=== PATIENT | male | born 1950 | race Caucasian/White ===

== ENCOUNTER → 2016-11-25 | Outpatient (CLI) | payer OTHER, BC ==
[~2016-11-25] MED LIST: AMLO-114 PO; ASPI-232 PO; GABA300C19 PO; GLIP-199 PO; HYDR25TA5 PO; INSU1.2I SQ; INSUINJ5 SQ; LSN40 PO; METF-384 PO; MULT-884 PO; NITR0.4S UT; ROSU40TA PO; TPRSR/100 PO
[2016-11-25 13:34] LABS: ESTIMATED AVERAGE GLUCOSE 189 mg/dl; HA1C FLAG Normal (Normal)
[2016-11-25 13:46] LABS: ALT/SGPT 53 U/L (12-78); BLOOD UREA NITROGEN 21 mg/dl (7-18); BUN/CREATININE RATIO 19.3 (10-20); CALCIUM 9.6 mg/dl (8.5-10.1); CARBON DIOXIDE 27 mmol/L (21-32); CHLORIDE 106 mmol/L (98-107); CHOLESTEROL 142 mg/dl (0-200); GLUCOSE 96 mg/dl (70-99); POTASSIUM 4.1 mmol/L (3.5-5.1); SODIUM 142 mmol/L (136-145); TRIGLYCERIDES 189 mg/dl (0-150); VERY LOW DENSITY LIPOPROT CALC 38 mg/dl
[2016-11-25 13:54] LABS: RATIO 56.8 mcg/mg (0-30.0)
[2016-11-25 13:56] LABS: CHOLESTEROL/HDL RATIO 4.2; HDL CHOLESTEROL 34 mg/dl
== END | disposition home or self-care (01) ==
LOC: C.LABMFLN 08:07
PROVIDERS: ATTEND Family Medicine
DX: Z00.00 Encounter for general adult medical examination without abnormal findings (principal); I25.10 Atherosclerotic heart disease of native coronary artery without angina pectoris; I10 Essential (primary) hypertension; E78.00 Pure hypercholesterolemia, unspecified; E03.9 Hypothyroidism, unspecified; E11.65 Type 2 diabetes mellitus with hyperglycemia

== ENCOUNTER → 2016-11-29 | Outpatient (CLI) | payer OTHER, BC ==
[2016-11-29 18:13] LABS: BASO % 0.1 %; BASO ABS # 0.01 K/uL (0-0.2); COMPLETE YES; EOS % 0.7 %; HEMATOCRIT 38.8 % (42-52); IG% 0.1 %; LYMPH % 19.4 %; LYMPH ABS # 1.39 K/uL (1.2-3.4); MEAN CELL VOLUME 97.2 fL (80-100); MEAN CORPUSCULAR HEMOGLOBIN 32.1 pg (25-34); MONO % 6.6 %; NEUT % 73.1 %; PLATELET COUNT 196 K/uL (130-400); RED BLOOD COUNT 3.99 M/uL (4.7-6.1); WHITE BLOOD COUNT 7.16 K/uL (4.8-10.8)
== END | disposition home or self-care (01) ==
LOC: C.LABMFLN 13:44
PROVIDERS: ATTEND Family Medicine
DX: Z89.422 Acquired absence of other left toe(s) (principal); R06.09 Other forms of dyspnea; R07.2 Precordial pain

== ENCOUNTER → 2017-04-02 | Outpatient (CLI) | payer OTHER, BC ==
[~2017-04-02] MED LIST changes: +GABA-1218 PO; -GABA300C19 PO
[2017-04-02 12:41] LABS: BASO % 0.4 %; BASO ABS # 0.03 K/uL (0-0.2); COMPLETE YES; EOS % 1.2 %; HEMATOCRIT 38.1 % (42-52); IG% 0.1 %; LYMPH % 23.7 %; LYMPH ABS # 1.95 K/uL (1.2-3.4); MEAN CELL VOLUME 97.9 fL (80-100); MEAN CORPUSCULAR HEMOGLOBIN 33.4 pg (25-34); MEAN CORPUSCULAR HGB CONC 34.1 g/dl (32-36); MEAN PLATELET VOLUME 10.9 fL (7.4-10.4); MONO % 9.4 %; NEUT % 65.2 %; PLATELET COUNT 198 K/uL (130-400); RED BLOOD COUNT 3.89 M/uL (4.7-6.1); WHITE BLOOD COUNT 8.22 K/uL (4.8-10.8)
[2017-04-02 13:12] LABS: URINE APPEARANCE CLEAR (CLEAR); URINE COLOR DK YELLOW; URINE EPITHELIAL CELL AUTO >30 /lpf (0-5); URINE NITRITE NEG (NEG); URINE PH 5.5 (4.5-7.5); URINE SPECIFIC GRAVITY 1.027 (1.000-1.030); UROBILINOGEN NEG (NEG); ZZUR CULT IF INDIC CLEAN CATCH NO
[2017-04-02 13:28] LABS: ALB/GLOB RATIO 0.9 (0.9-2); ALKALINE PHOSPHATASE 121 U/L (45-117); ALT/SGPT 52 U/L (12-78); AST/SGOT 52 U/L (15-37); BLOOD UREA NITROGEN 24 mg/dl (7-18); BUN/CREATININE RATIO 21.1 (10-20); CALCIUM 9.1 mg/dl (8.5-10.1); CARBON DIOXIDE 25 mmol/L (21-32); CHLORIDE 107 mmol/L (98-107); CREATININE 1.14 mg/dl (0.60-1.40); GLUCOSE 147 mg/dl (70-99); SODIUM 139 mmol/L (136-145)
[2017-04-02 13:41] LABS: ESTIMATED AVERAGE GLUCOSE 220 mg/dl; HA1C FLAG Normal (Normal)
[2017-04-02 13:54] LABS: MANUAL MICROSCOPIC REQUIRED? NO; REVIEW REQ? YES; URINE BILIRUBIN NEG (NEG)
== END | disposition home or self-care (01) ==
LOC: C.LABMFLN 08:29
PROVIDERS: ATTEND Family Medicine
DX: R10.31 Right lower quadrant pain (principal)

== ENCOUNTER → 2017-05-07 | Day surgery (SDC) | payer OTHER, BC ==
[2017-04-23 13:25] VITALS: Ht 182.9 cm; Wt 147.7 kg
[~2017-05-07] VITALS: Ht 182.9 cm; Wt 147.7 kg
[~2017-05-07] MED LIST changes: +500ML BSS 0.3ML EPI 1:1000PF IRRIG ONE; +ACETAMINOPHEN 325 MG TAB PO PRN; +AMVISC PLUS 0.8ML SYRINGE INT OCU ONE; +ATROPINE SULFATE 0.1 MG/ML 5ML SYR IV PRN; +BSS FLUSH ONE; +ENDOCOAT 0.85ML SYRINGE INT OCU ONE; +EpHEDrine SULFATE INJ 50 MG/ML AMP IV PRN; +EpINEphrine INJ 1MG/ML AMP 1 MG/ML AMP ONE; +FLUT0.15 NAE; +FLUT45AE IN; +FURO-85 PO; -GABA-1218 PO; -GLIP-199 PO; -HYDR25TA5 PO; +INSU1.2I SC; -INSU1.2I SQ; +INSUINJ5 SC; -INSUINJ5 SQ; +LACTATED RINGER'S 1000ML 500 ML IV SCH; +LIDOCAINE 4% OP SOLN DROP CHARGE ONE; +LIDOCAINE 4% OP SOLN DROP CHARGE OPR SCH; +LIDOCAINE HCL 1% MPF 2 ML VIAL ONE; +LISI-725 PO; +LORA-554 PO; -LSN40 PO; +MIDAZOLAM HCL 1 MG/ML 2ML VIAL ONE; +MIX: 4ML BSS 1ML EPI 1:1000 PF TOP ONE; +MOXIFLOXACIN OPH SOLN PER DROP CHARGE ONE; +PARO1TAB27 PO; +POVIDONE-IODINE OP SOLN 30 ML BTL ONE; +PROPARACAINE 0.5% OP SOLN PER DROP CHARGE OPR SCH; +TICA1TAB PO; +TOBRAMYCIN/DEXAMETHASONE OPH OINT PER APPLN CHARGE ONE
--- NOTE | 2017-05-07 06:37 | History & Physical Bridge - [place] ---
H&P Re-Evaluation Bridge Note: I have examined the patient, reviewed the History & Physical and in the interval since the performance of the History & Physical I have noted the following changes of clinical significance: No changes noted
[2017-05-07] MEDS: PHENYLEPHRINE HCL 2.5% OP SOLN PER DROP CHARGE OPR SCH ×3 (06:40→06:51)
[2017-05-07] MEDS: TROPICAMIDE 1% OP SOLN PER DROP CHARGE OPR SCH ×3 (06:41→06:52)
[2017-05-07] MEDS: CYCLOPENTOLATE HCL 1% OP SOLN PER DROP CHARGE OPR SCH ×3 (06:42→06:53)
[2017-05-07] MEDS: MOXIFLOXACIN OPH SOLN PER DROP CHARGE OPR SCH ×3 (06:46→06:54)
--- NOTE | 2017-05-07 07:29 | [facility] Post Operative Brief Note ---
Immediate Operative Summary Operative Date May 07, 2017. Pre-Operative Diagnosis Cataract Right eye Post-Operative Diagnosis Same Procedure(s) Performed Right Cataract Phacoemulsification With Intraocular Lens Implant Surgeon Coordinator Of Genetic Services Surgeon(s) None Estimated Blood Loss Zero Findings right cataract Specimens None Complication(s) None Disposition
--- NOTE | 2017-05-07 07:29 | [facility] Operative Report ---
Operative Report Date of Service May 07, 2017. Operative Report DATE OF OPERATION: 05/07/17 PREOPERATIVE DIAGNOSIS: Senile nuclear cataract, right eye POSTOPERATIVE DIAGNOSIS: Senile nuclear cataract, right eye PROCEDURE PERFORMED: Phacoemulsification with intraocular lens implantation, right eye SURGEON: Dr. Chance Fernandez ANESTHESIA: Topical with 1% intracameral lidocaine and monitored anesthesia care COMPLICATIONS: None DESCRIPTION OF PROCEDURE: After positively identifying the patient both verbally and by wristband in the preoperative area, the right eye was marked as the operative eye. The patient was then brought back to the operating room by the anesthesia and nursing staff where they were given a drop of Lidocaine and betadine into the operative eye. They were then sterilely prepped and draped in the standard fashion typical for ophthalmic surgery. Steri-strips were placed along the upper eyelids to keep the lashes back, and a lid speculum was placed into the operative eye. At this point, a documented time out was performed with members of the ophthalmology, nursing, and anesthesia staffs all agreeing upon the correct patient, correct location for surgery, correct procedure, and correct type and power of intraocular lens to be implanted. The microscope was then swung into position. First, a paracentesis wound was made using a sideport blade. Then, in sequence, 1% preservative-free lidocaine followed by Endocoat viscoelastic was injected into the anterior chamber. Next , the main incision was made with a keratome blade in triplanar fashion. A sharp cystotome was introduced into the eye and used to create a tear in the anterior capsule, which was directed into a continuous curvilinear capsulorrhexis using Utrata forceps. Hydrodissection was then performed with BSS on a flat-tip cannula. Next, the phacoemulsification handpiece was introduced into the eye and used to remove the nucleus in a [id number]-[id number]-[id number] fashion. This was done without complication and then the irrigation-aspiration handpiece was introduced into the eye and used to remove all remaining cortical and epinuclear material. Amvisc was then injected into the anterior chamber as well as into the capsular bag and using the lens injector system, an MX60 19.5 D lens, serial number [id number], and expiration date 12/2019 was injected into the capsular bag and rotated into the correct position. Next, the irrigation- aspiration handpiece was used to remove all remaining Amvisc. BSS was used to hydrate the main wound, and then BSS was injected into the paracentesis site to reach physiologic pressure and then the main wound was checked and found to be watertight. The patient was given drops of Vigamox and Tobradex ointment into the operative eye, and then the surrounding area was cleaned and dried. A clear plastic shield was placed over the eye and the patient was then sat up and taken from the operating room by the anesthesia staff having tolerated the procedure well and suffering no complications. DISPOSITION: The patient was returned to the recovery room in stable condition. I attest to the content of the Intraoperative Record and any orders documented therein. Any exceptions are noted below.
--- NOTE | 2017-05-07 07:30 | Discharge Instructions-SurgCtr ---
Discharge Instructions Date of Service May 07, 2017. Visit Reason for Visit: Right Cataract Discharge Discharge Diagnosis / Problem: right cataract Discharge Goals Goal(s): Decrease discomfort, Improve function Medications Stopped Medications Name(s): Metformin, last taken Friday 05/04 Activity Recommendations Activity Limitations: as noted below Anesthesia . Post Anesthesia Instructions: If you have had General Anesthesia or IV Sedation: * Do not drive today. * Resume driving when surgeon permits. * Do not make important decisions or sign legal documents today. * Call surgeon for: 1. Temperature elevations greater than 101 degrees F. 2. Uncontrollable pain. 3. Excessive bleeding. 4. Persistent nausea and vomiting. 5. Medication intolerance (nausea, vomiting or rash). * For nausea and vomiting use only clear liquids such as: tea, soda, bouillon until nausea subsides, then gradually increase diet as tolerated. * If you have any concerns or questions, call your surgeon's office. If physician is unavailable and it is an emergency, call 911 or go to the nearest emergency room. . Instructions / Follow-Up Instructions / Follow-Up ACTIVITY RECOMMENDATIONS: * Light activities. * You may walk outside, read, watch television. * You may notice redness on the white part of the eye and some blurry vision - this is normal. MEDICATIONS: Resume previous medications unless instructed otherwise by your surgeon. Start all eye drops at 9:30 am today: * Eye drops (today): Prednisone - one drop in operative eye every 2 hours while awake Ofloxacin - one drop in operative eye every 2 hours while awake Prolensa - one drop in operative eye daily SPECIAL CARE INSTRUCTIONS: * Tape plastic shield over eye to sleep at night. Call your doctor at with any concerns or problems. FOLLOW UP VISIT: Follow-up with Dr Fernandez at [facility] office as scheduled. Diet Recommendations Home Diet: no limitations Procedures Procedures Performed: Right Cataract Phacoemulsification With Intraocular Lens Implant Pending Studies Studies pending at discharge: no Medical Emergencies . Who to Call and When: Medical Emergencies: If at any time you feel your situation is an emergency, please call 911 immediately. . Non-Emergent Contact Non-Emergency issues call your: Surgeon . . "Provider Documentation" section prepared by Chance Fernandez. .
--- NOTE | 2017-05-07 07:46 | Anesthesia Progress Nt - [facility] ---
Anesthesia Post Op Note Date & Time May 07, 2017 at 07:46 Vital Signs Pain Intensity: 0 Vital Signs Past 12 Hours Date Time Temp Pulse Resp B/P (MAP) Pulse Ox O2 Delivery O2 Flow Rate FiO2 05/07/17 07:28 36.8 16 137/72 (93) 95 Room Air 05/07/17 06:30 36.5 58 18 134/73 (93) 95 Notes Mental Status: alert / awake / arousable, participated in evaluation Pt Amnestic to Procedure: Yes Nausea / Vomiting: adequately controlled Pain: adequately controlled Airway Patency, RR, SpO2: stable & adequate BP & HR: stable & adequate Hydration State: stable & adequate Anesthetic Complications: no major complications apparent
[2017-05-07 08:03] VITALS: BP 136/66; PULSE 64; O2SAT 98
== END | disposition home or self-care (01) ==
LOC: X.SURG 06:15
PROVIDERS: ATTEND Ophthalmology
DX: E11.36 Type 2 diabetes mellitus with diabetic cataract (principal); H25.11 Age-related nuclear cataract, right eye; I25.10 Atherosclerotic heart disease of native coronary artery without angina pectoris; I10 Essential (primary) hypertension; Z88.5 Allergy status to narcotic agent; Z85.828 Personal history of other malignant neoplasm of skin; Z87.891 Personal history of nicotine dependence; Z79.899 Other long term (current) drug therapy; Z79.82 Long term (current) use of aspirin

== ENCOUNTER → 2017-05-21 | Day surgery (SDC) | payer OTHER, BC ==
[2017-05-16 12:04] VITALS: Ht 182.9 cm; Wt 147.7 kg
[~2017-05-21] VITALS: Ht 182.9 cm; Wt 147.7 kg
[~2017-05-21] MED LIST changes: +ALBUTEROL HFA 8 GM INHALER INH ONE; -AMLO-114 PO; +AMLO10TA3 PO; +LIDOCAINE 4% OP SOLN DROP CHARGE OPL SCH; -LIDOCAINE 4% OP SOLN DROP CHARGE OPR SCH; +PROPARACAINE 0.5% OP SOLN PER DROP CHARGE OPL SCH; -PROPARACAINE 0.5% OP SOLN PER DROP CHARGE OPR SCH
[2017-05-21] MEDS: PHENYLEPHRINE HCL 2.5% OP SOLN PER DROP CHARGE OPL SCH ×3 (06:54→07:04)
[2017-05-21] MEDS: TROPICAMIDE 1% OP SOLN PER DROP CHARGE OPL SCH ×3 (06:55→07:05)
[2017-05-21] MEDS: CYCLOPENTOLATE HCL 1% OP SOLN PER DROP CHARGE OPL SCH ×3 (06:56→07:06)
[2017-05-21] MEDS: MOXIFLOXACIN OPH SOLN PER DROP CHARGE OPL SCH ×3 (06:57→07:07)
--- NOTE | 2017-05-21 08:01 | [facility] Post Operative Brief Note ---
Immediate Operative Summary Operative Date May 21, 2017. Pre-Operative Diagnosis Cataract left eye Post-Operative Diagnosis Same as pre-op Procedure(s) Performed Left Cataract Phacoemulsification With Intraocular Lens Implant Surgeon Barrel Cap Setter Surgeon(s) None Estimated Blood Loss Zero Findings left cataract Specimens None Complication(s) None Disposition
--- NOTE | 2017-05-21 08:02 | [facility] Operative Report ---
Operative Report Date of Service May 21, 2017. Operative Report DATE OF OPERATION: 05/21/17 PREOPERATIVE DIAGNOSIS: Senile nuclear cataract, left eye POSTOPERATIVE DIAGNOSIS: Senile nuclear cataract, left eye PROCEDURE PERFORMED: Phacoemulsification with intraocular lens implantation, left eye SURGEON: Dr. Chance Fernandez ANESTHESIA: Topical with 1% intracameral lidocaine and monitored anesthesia care COMPLICATIONS: None DESCRIPTION OF PROCEDURE: After positively identifying the patient both verbally and by wristband in the preoperative area, the left eye was marked as the operative eye. The patient was then brought back to the operating room by the anesthesia and nursing staff where they were given a drop of Lidocaine and betadine into the operative eye. They were then sterilely prepped and draped in the standard fashion typical for ophthalmic surgery. Steri-strips were placed along the upper eyelids to keep the lashes back, and a lid speculum was placed into the operative eye. At this point, a documented time out was performed with members of the ophthalmology, nursing, and anesthesia staffs all agreeing upon the correct patient, correct location for surgery, correct procedure, and correct type and power of intraocular lens to be implanted. The microscope was then swung into position. First, a paracentesis wound was made using a sideport blade. Then, in sequence, 1% preservative-free lidocaine followed by Endocoat viscoelastic was injected into the anterior chamber. Next , the main incision was made with a keratome blade in triplanar fashion. A sharp cystotome was introduced into the eye and used to create a tear in the anterior capsule, which was directed into a continuous curvilinear capsulorrhexis using Utrata forceps. Hydrodissection was then performed with BSS on a flat-tip cannula. Next, the phacoemulsification handpiece was introduced into the eye and used to remove the nucleus in a [id number] fashion. This was done without complication and then the irrigation-aspiration handpiece was introduced into the eye and used to remove all remaining cortical and epinuclear material. Amvisc was then injected into the anterior chamber as well as into the capsular bag and using the lens injector system, an MX60 20.5 D lens, serial number [id number], and expiration date 09/2019 was injected into the capsular bag and rotated into the correct position. Next, the irrigation- aspiration handpiece was used to remove all remaining Amvisc. BSS was used to hydrate the main wound, and then BSS was injected into the paracentesis site to reach physiologic pressure and then the main wound was checked and found to be watertight. The patient was given drops of Vigamox and Tobradex ointment into the operative eye, and then the surrounding area was cleaned and dried. A clear plastic shield was placed over the eye and the patient was then sat up and taken from the operating room by the anesthesia staff having tolerated the procedure well and suffering no complications. DISPOSITION: The patient was returned to the recovery room in stable condition. I attest to the content of the Intraoperative Record and any orders documented therein. Any exceptions are noted below.
[2017-05-21 08:03] VITALS: TEMP 36.6
--- NOTE | 2017-05-21 08:03 | Discharge Instructions-SurgCtr ---
Discharge Instructions Date of Service May 21, 2017. Visit Reason for Visit: Cataract Left Eye Discharge Discharge Diagnosis / Problem: left cataract Discharge Goals Goal(s): Decrease discomfort, Improve function Medications Stopped Medications Name(s): metforin stopped Friday Activity Recommendations Activity Limitations: as noted below Anesthesia . Post Anesthesia Instructions: If you have had General Anesthesia or IV Sedation: * Do not drive today. * Resume driving when surgeon permits. * Do not make important decisions or sign legal documents today. * Call surgeon for: 1. Temperature elevations greater than 101 degrees F. 2. Uncontrollable pain. 3. Excessive bleeding. 4. Persistent nausea and vomiting. 5. Medication intolerance (nausea, vomiting or rash). * For nausea and vomiting use only clear liquids such as: tea, soda, bouillon until nausea subsides, then gradually increase diet as tolerated. * If you have any concerns or questions, call your surgeon's office. If physician is unavailable and it is an emergency, call 911 or go to the nearest emergency room. . Instructions / Follow-Up Instructions / Follow-Up ACTIVITY RECOMMENDATIONS: * Light activities. * You may walk outside, read, watch television. * You may notice redness on the white part of the eye and some blurry vision - this is normal. MEDICATIONS: Resume previous medications unless instructed otherwise by your surgeon. Start all eye drops at 10 am today: * Eye drops (today): Prednisone - one drop in operative eye every 2 hours while awake Ofloxacin - one drop in operative eye every 2 hours while awake Prolensa - one drop in operative eye daily SPECIAL CARE INSTRUCTIONS: * Tape plastic shield over eye to sleep at night. Call your doctor at with any concerns or problems. FOLLOW UP VISIT: Follow-up with Dr Fernandez at [facility] office as scheduled. Diet Recommendations Home Diet: no limitations Procedures Procedures Performed: Left Cataract Phacoemulsification With Intraocular Lens Implant Pending Studies Studies pending at discharge: no Medical Emergencies . Who to Call and When: Medical Emergencies: If at any time you feel your situation is an emergency, please call 911 immediately. . Non-Emergent Contact Non-Emergency issues call your: Surgeon . . "Provider Documentation" section prepared by Chance Fernandez. .
--- NOTE | 2017-05-21 08:18 | Anesthesia Progress Nt - [facility] ---
Anesthesia Post Op Note Date & Time May 21, 2017 at 08:18 Vital Signs Pain Intensity: 0 Vital Signs Past 12 Hours Date Time Temp Pulse Resp B/P (MAP) Pulse Ox O2 Delivery O2 Flow Rate FiO2 05/21/17 08:03 36.6 58 16 150/74 (99) 97 Room Air 05/21/17 06:41 36.4 60 16 139/80 (99) 99 Room Air Notes Mental Status: alert / awake / arousable, participated in evaluation Pt Amnestic to Procedure: Yes Nausea / Vomiting: adequately controlled Pain: adequately controlled Airway Patency, RR, SpO2: stable & adequate BP & HR: stable & adequate Hydration State: stable & adequate Anesthetic Complications: no major complications apparent
[2017-05-21 08:27] VITALS: BP 153/78; PULSE 61; O2SAT 100
== END | disposition home or self-care (01) ==
LOC: X.SURG 06:21
PROVIDERS: ATTEND Ophthalmology
DX: E11.36 Type 2 diabetes mellitus with diabetic cataract (principal); H26.9 Unspecified cataract; I10 Essential (primary) hypertension; I25.2 Old myocardial infarction; Z88.5 Allergy status to narcotic agent; Z87.891 Personal history of nicotine dependence; E66.01 Morbid (severe) obesity due to excess calories; Z68.41 Body mass index [BMI] 40.0-44.9, adult; G47.33 Obstructive sleep apnea (adult) (pediatric)

== ENCOUNTER → 2017-08-22 | Outpatient (CLI) | payer OTHER, BC ==
[~2017-08-22] MED LIST changes: -500ML BSS 0.3ML EPI 1:1000PF IRRIG ONE; -ACETAMINOPHEN 325 MG TAB PO PRN; -ALBUTEROL HFA 8 GM INHALER INH ONE; +AMLO-114 PO; -AMLO10TA3 PO; -AMVISC PLUS 0.8ML SYRINGE INT OCU ONE; -ATROPINE SULFATE 0.1 MG/ML 5ML SYR IV PRN; -BSS FLUSH ONE; -ENDOCOAT 0.85ML SYRINGE INT OCU ONE; -EpHEDrine SULFATE INJ 50 MG/ML AMP IV PRN; -EpINEphrine INJ 1MG/ML AMP 1 MG/ML AMP ONE; -LACTATED RINGER'S 1000ML 500 ML IV SCH; -LIDOCAINE 4% OP SOLN DROP CHARGE ONE; -LIDOCAINE 4% OP SOLN DROP CHARGE OPL SCH; -LIDOCAINE HCL 1% MPF 2 ML VIAL ONE; -MIDAZOLAM HCL 1 MG/ML 2ML VIAL ONE; -MIX: 4ML BSS 1ML EPI 1:1000 PF TOP ONE; -MOXIFLOXACIN OPH SOLN PER DROP CHARGE ONE; -POVIDONE-IODINE OP SOLN 30 ML BTL ONE; -PROPARACAINE 0.5% OP SOLN PER DROP CHARGE OPL SCH; -TOBRAMYCIN/DEXAMETHASONE OPH OINT PER APPLN CHARGE ONE
[2017-08-22 12:44] LABS: BASO % 0.2 %; BASO ABS # 0.02 K/uL (0-0.2); EOS % 1.6 %; EOS ABS # 0.15 K/uL (0-0.5); HEMATOCRIT 38.4 % (42-52); HEMOGLOBIN 13.1 g/dL (14.0-18.0); IG# 0.02 K/uL (0.00-0.02); LYMPH % 22.1 %; LYMPH ABS # 2.01 K/uL (1.2-3.4); MEAN CORPUSCULAR HEMOGLOBIN 32.8 pg (25-34); MEAN CORPUSCULAR HGB CONC 34.1 g/dl (32-36); MEAN PLATELET VOLUME 10.9 fL (7.4-10.4); MONO % 8.7 %; MONO ABS # 0.79 K/uL (0.11-0.59); NEUT % 67.2 %; NEUT ABS # 6.11 K/uL (1.4-6.5); PLATELET COUNT 199 K/uL (130-400); RED CELL DISTRIBUTION WIDTH CV 14.2 % (11.5-14.5); RED CELL DISTRIBUTION WIDTH SD 50.4 fL (36.4-46.3)
[2017-08-22 13:25] LABS: BLOOD UREA NITROGEN 17 mg/dl (7-18); CALCIUM 9.2 mg/dl (8.5-10.1); CARBON DIOXIDE 27 mmol/L (21-32); CREATININE 0.93 mg/dl (0.60-1.40); GLUCOSE 174 mg/dl (70-99); POTASSIUM 3.9 mmol/L (3.5-5.1); SODIUM 138 mmol/L (136-145)
== END | disposition home or self-care (01) ==
LOC: C.LABMFLN 10:42
PROVIDERS: ATTEND Family Medicine
DX: E03.9 Hypothyroidism, unspecified (principal); M25.569 Pain in unspecified knee; E78.00 Pure hypercholesterolemia, unspecified; Z23 Encounter for immunization; G47.33 Obstructive sleep apnea (adult) (pediatric); E11.9 Type 2 diabetes mellitus without complications; I70.219 Atherosclerosis of native arteries of extremities with intermittent claudication, unspecified extremity; Z87.891 Personal history of nicotine dependence; R69 Illness, unspecified; B35.3 Tinea pedis; R07.2 Precordial pain